=== PATIENT | female | born 1955 | race Caucasian/White ===

== ENCOUNTER 2019-11-03 05:25 | Outpatient (CLI) | payer OTHER, BC ==
[2019-11-03 19:27] LABS: SARS-CoV-2 MS2 Positive; SARS-CoV-2 N Gene Negative; SARS-CoV-2 S Gene Negative; SARS-CoV-2 orf1ab Negative
== END 2019-11-03 05:26 | disposition home or self-care (01) ==
LOC: ERS 05:25
PROVIDERS: ATTEND Internal Medicine
DX: Z11.59 Encounter for screening for other viral diseases (principal)
CPT/HCPCS: 87635; U0003

== ENCOUNTER 2019-11-05 19:30 | Outpatient (CLI) | payer OTHER, BC | END 2019-11-05 19:31 | disposition home or self-care (01) | LOC: SLEEPLAB 19:30 | PROVIDERS: ATTEND Internal Medicine | DX: G47.33 Obstructive sleep apnea (adult) (pediatric) (principal); R53.83 Other fatigue; N95.1 Menopausal and female climacteric states | CPT/HCPCS: 95810 ==

== ENCOUNTER 2023-02-09 09:58 | Outpatient (CLI) | payer MEDICARE, BC ==
[2023-02-09] MEDS ORDERED: Iopamidol-370 76% 500 ML MDV (1 ML CHARGE) ONE (10:33)
== END 2023-02-09 09:59 | disposition home or self-care (01) ==
LOC: BICCT 09:58
PROVIDERS: ATTEND Internal Medicine Cardiovascular Disease
DX: I71.20 Thoracic aortic aneurysm, without rupture, unspecified (principal)
CPT/HCPCS: 71275; 82565

== ENCOUNTER 2023-07-31 08:29 | Outpatient (CLI) | payer MEDICARE, BC ==
[2023-07-31] MEDS ORDERED: Iopamidol 370 76% 100 ML VIAL ONE (11:47)
== END 2023-07-31 08:30 | disposition home or self-care (01) ==
LOC: CT 08:29
PROVIDERS: ATTEND Internal Medicine Cardiovascular Disease
DX: I71.21 Aneurysm of the ascending aorta, without rupture (principal); I71.20 Thoracic aortic aneurysm, without rupture, unspecified
CPT/HCPCS: 71275; 82565; Q9967

== ENCOUNTER 2023-12-06 13:33 | Outpatient (CLI) | payer MEDICARE, BC | END 2023-12-06 13:34 | disposition home or self-care (01) | LOC: BICMAMMO 13:33 | PROVIDERS: ATTEND Internal Medicine | DX: Z12.31 Encounter for screening mammogram for malignant neoplasm of breast (principal); Z13.820 Encounter for screening for osteoporosis; M85.851 Other specified disorders of bone density and structure, right thigh; M85.852 Other specified disorders of bone density and structure, left thigh; Z78.0 Asymptomatic menopausal state; Z91.89 Other specified personal risk factors, not elsewhere classified | CPT/HCPCS: 77063; 77067; 77080 ==

== ENCOUNTER 2024-07-22 08:13 | Outpatient (CLI) | payer MEDICARE, BC ==
[2024-07-22] MEDS ORDERED: Iopamidol 370 76% 100 ML VIAL ONE (09:10)
== END 2024-07-22 08:14 | disposition home or self-care (01) ==
LOC: CT 08:13
PROVIDERS: ATTEND Internal Medicine Cardiovascular Disease
DX: I71.20 Thoracic aortic aneurysm, without rupture, unspecified (principal)
CPT/HCPCS: 36415; 71275; 82565